=== PATIENT | male | born 1940 | race Caucasian/White ===

== ENCOUNTER 2024-12-14 13:15 | Emergency (ER) | payer MEDICARE, MEDICAID ==
[~2024-12-14] VITALS: Ht 152.4 cm; Wt 43.2 kg
[~2024-12-14 13:15] MED LIST: ACET325T43 PO; ASPI-1265 PO; ATOR20TA66 PO; FERR325T39 PO; LOP25T PO; NITR0.4T48 SL; OMEP20CA15 PO; TERA10CA4 PO; TICA90TA PO
[2024-12-14 13:37] VITALS: TEMP 99
[2024-12-14 17:25] VITALS: BP 158/80; PULSE 85; RESP 17; O2SAT 96
== END 2024-12-14 17:30 | disposition home or self-care (01) ==
LOC: ER 13:16
DX: L03.116 Cellulitis of left lower limb (principal); E11.9 Type 2 diabetes mellitus without complications; I10 Essential (primary) hypertension; Z79.82 Long term (current) use of aspirin
CPT/HCPCS: 99284